=== PATIENT | male | born 1955 | race Two or more races ===

== ENCOUNTER 2019-02-17 20:45 | Emergency (ER) | payer MEDICARE, MEDICAID ==
[~2019-02-17] VITALS: Ht 175.3 cm; Wt 67.1 kg
[~2019-02-17 20:45] MED LIST: AMOX250C3 PO; ASPI-231 PO; LIS5T PO; NAPR-223 PO; OMEP20CA74 PO; PRAV20TA3 OR
[2019-02-17 21:08] VITALS: BP 183/100
[2019-02-17] MEDS ORDERED: cloNIDine HCL 0.1 MG TAB PO ONE (21:15)
== END 2019-02-18 00:44 | disposition left against medical advice (07) ==
LOC: ER 20:49
DX: R04.0 Epistaxis (principal); Z53.21 Procedure and treatment not carried out due to patient leaving prior to being seen by health care provider

== ENCOUNTER → 2022-10-18 | Outpatient (CLI) | payer MEDICARE, MEDICAID ==
[~2022-10-18] VITALS: Ht 175.3 cm; Wt 67.1 kg
[~2022-10-18] MED LIST changes: +ADENOSINE 56 MG in GIVE UN-DILUTED 0 ML IV STA; +ALPRAZolam 0.25 MG TAB PO ONE; -ASPI-231 PO; +ASPI1TAB20 PO
== END | disposition home or self-care (01) ==
LOC: XYW 08:26
PROVIDERS: ATTEND Internal Medicine
DX: I25.10 Atherosclerotic heart disease of native coronary artery without angina pectoris (principal)
CPT/HCPCS: 78452; 93017; A9500; J0153